=== PATIENT | male | born 1975 | race Caucasian/White ===

== ENCOUNTER 2016-12-22 06:33 | Day surgery (SDC) | payer BC ==
[2016-12-22 07:16] LABS: HEMATOCRIT 47.3 % (37.9-51.0); HEMOGLOBIN 16.3 g/dL (13.5-17.0); HGB HCT DIFFERENCE 1.6; MEAN CORPUSCULAR HEMOGLOBIN 29.1 pg (27.0-33.4); MEAN CORPUSCULAR HGB CONC 34.4 g/dL (32.0-36.0); MEAN CORPUSCULAR VOLUME 84 fl (80-97); RED CELL DISTRIBUTION WIDTH 13.3 % (11.5-14.0); WHITE BLOOD COUNT 6.4 10^3/uL (4.0-10.5)
[2016-12-22] MEDS ORDERED: PROMETHAZINE HCL INJ 25 MG/1 ML VIAL ONE (07:18)
[2016-12-22] MEDS ORDERED: NALOXONE HCL INJ/PF 0.4 MG/1 ML SDV ONE (07:18)
[2016-12-22] MEDS ORDERED: ONDANSETRON HCL INJ/PF 4 MG/2 ML SDV ONE (07:18)
[2016-12-22] MEDS ORDERED: FLUMAZENIL INJ 0.5 MG/5 ML VIAL IV ONE (07:19)
[2016-12-22] MEDS ORDERED: GLYCOPYRROLATE INJ 0.4 MG/2 ML VIAL ONE (07:19)
[2016-12-22] MEDS ORDERED: FENTANYL CITRATE INJ/PF 100 MCG/2 ML AMPUL ONE (07:19)
[2016-12-22] MEDS ORDERED: GLUCAGON,HUMAN RECOMB 1 MG INJ ONE (07:20)
[2016-12-22] MEDS ORDERED: EPINEPHRINE INJ 1 MG/10 ML DISP.SYRIN ONE (07:20)
[2016-12-22] MEDS: MIDAZOLAM 2 MG/2 ML INJ ONE ×2 (08:15→08:20)
--- NOTE | 2016-12-22 08:47 | Operative Report ---
Operative Report DATE OF SURGERY: 12/22/16 PREOPERATIVE DIAGNOSIS: Family history of colon cancer POSTOPERATIVE DIAGNOSIS: Family history of colon cancer OPERATION: Colonoscopy SURGEON: PAVEL LEDESMA ANESTHESIA: Moderate Sedation TISSUE REMOVED OR ALTERED: None COMPLICATIONS: None ESTIMATED BLOOD LOSS: none INTRAOPERATIVE FINDINGS: Normal colon PROCEDURE: Informed consent was obtained. Patient was brought to the endoscopy suite. IV sedation with fentanyl and Versed was administered. Digital rectal exam revealed no palpable perianal masses. Endoscope was passed via the patient's anus it was fed to the cecum the bowel prep was good visualization was good the cecum right colon transverse colon descending colon sigmoid colon the rectum were all normal with no polyps no masses no diverticuli. Patient tolerated procedure well with no apparent complications and was taken to the recovery area in stable condition. With the patient's family history of colon cancer recommend repeat colonoscopy in 5 years.
--- NOTE | 2016-12-22 08:50 | PDOC DISCHARGE SUMMARY ---
Discharge Summary (SDC) - Discharge Final Diagnosis: Family history of colon cancer Date of Surgery: 12/22/16 Discharge Date: 12/22/16 Condition: Good Treatment or Instructions: Colonoscopy. May discharge patient home when met discharge criteria. Follow- up with me in 2 weeks. Stay active at home. Discharge Diet: As Tolerated Discharge Activity: Activity As Tolerated Report the Following to Your Physician Immediately: Increase in Pain, Unusual Bleeding
[2016-12-22 09:39] VITALS: BP 122/73
== END 2016-12-22 09:35 | disposition home or self-care (01) ==
LOC: END 06:33
PROVIDERS: ATTEND Surgery
PROC: 0DJD8ZZ Inspection of Lower Intestinal Tract, Via Natural or Artificial Opening Endoscopic (ICD-10-PCS; principal; 2016-12-22 08:00)
DX: Z80.0 Family history of malignant neoplasm of digestive organs (principal); I10 Essential (primary) hypertension; Z79.82 Long term (current) use of aspirin; Z79.899 Other long term (current) drug therapy
CPT/HCPCS: 45378; 36415; 85027; J2250; J3010; J0171; J1610; J2310; J2405; J2550; J3490